=== PATIENT | male | born 1935 | race Caucasian/White ===

== ENCOUNTER 2019-04-12 14:49 | Emergency (ER) | payer OTHER ==
[~2019-04-12] VITALS: Ht 172.7 cm; Wt 87.1 kg
[2019-04-12 15:41] VITALS: BP_SYST 95
--- NOTE | 2019-04-12 15:45 | NUR ---
Patient triaged and placed in waiting room. VSS and patient appears in no acute distress at this time. Accompanied by , awaiting available bed, and MD notified of need for MSE.
--- NOTE | 2019-04-12 20:38 | NUR ---
Patient left without being seen. No further treatment provided. ER MD aware
--- NOTE | 2019-04-12 20:38 | NUR ---
Called pt in x 3, no answer
== END 2019-04-12 20:38 | disposition left against medical advice (07) ==
LOC: SED 14:49
DX: R05 Cough (principal); R09.81 Nasal congestion; Z53.21 Procedure and treatment not carried out due to patient leaving prior to being seen by health care provider
CPT/HCPCS: 71045